=== PATIENT | male | born 1975 | race Two or more races ===

== ENCOUNTER 2021-10-23 00:50 | Emergency (ER) | payer OTHER ==
[2021-10-23 01:48] VITALS: TEMP 97.8; BMI 35.8
[2021-10-23] MEDS ORDERED: MAG HYDROX/AL HYDROX/SIMETH 30 ML UNIT-DOSE CUP PO ONE (02:34)
[2021-10-23] MEDS ORDERED: FAMOTIDINE 20 MG/50 ML IVPB 20 MG/50 ML MG IVPB ONE ×2 (02:34→03:03)
[2021-10-23] MEDS ORDERED: SODIUM CHLORIDE 0.9% 500 ML INFUS.BAG IV ONE (02:34)
[2021-10-23] MEDS ORDERED: SUCRALFATE 1 GM/10 ML UNIT DOSE CUPS PO ONE (02:35)
[2021-10-23] MEDS ORDERED: SUCRALFATE 1 GM TABLET (FP) PO ONE (03:02)
[2021-10-23] MEDS ORDERED: SUCRALFATE 1 GM TABLET (FP) ONE (03:03)
[2021-10-23] MEDS ORDERED: MAG HYDROX/AL HYDROX/SIMETH 30 ML UNIT-DOSE CUP ONE (03:03)
[2021-10-23 03:27] LABS: BASO % 0.2 % (0-2.0); EOS % 0.3 % (0-4.5); HEMATOCRIT 44.8 % (35.4-49); HEMOGLOBIN 15.4 GM/dL (11.7-16.9); LYMPH % 7.6 % (8-40); MCH 28.1 pg (25.7-33.7); MCHC 34.3 g/dl (32.0-35.9); MEAN CELL VOLUME 81.9 fl (80-96); MEAN PLT VOLUME 7.5 fl (7.5-11.1); NEUT % 88.9 % (42.8-82.8); PLATELET COUNT 191 10^3/uL (134-434); RBC 5.47 M/mm3 (4.00-5.60); RDW 13.8 % (11.9-15.9); WHITE BLOOD COUNT 9.2 K/mm3 (4.0-10.0)
[2021-10-23 03:46] LABS: CHLORIDE 102 mmol/L (98-107); SODIUM 138 mmol/L (136-145)
[2021-10-23 03:48] LABS: CALCIUM 9.1 mg/dL (8.5-10.1); LIPASE 150 U/L (73-393)
[2021-10-23 03:49] LABS: ALBUMIN 4.2 g/dl (3.4-5.0); ANION GAP 7 MMOL/L (8-16); BLOOD UREA NITROGEN 19.3 mg/dL (7-18); CO2 29 mmol/L (21-32); GLUCOSE,RANDOM 211 mg/dL (74-106)
[2021-10-23 03:51] LABS: CREATININE 1.2 mg/dL (0.55-1.3)
[2021-10-23 03:52] LABS: SGOT/AST 25 U/L (15-37); SGPT/ALT 50 U/L (13-61)
[2021-10-23 03:53] LABS: BILIRUBIN,TOTAL 0.4 mg/dL (0.2-1); TOT PROT 8.1 g/dl (6.4-8.2)
[2021-10-23 03:54] LABS: ALK PHOS 66 U/L (45-117)
[2021-10-23 08:30] VITALS: BP 146/91; PULSE 90
== END 2021-10-23 08:34 | disposition home or self-care (01) ==
LOC: JER 00:50
PROC: 3E033NZ Introduction of Analgesics, Hypnotics, Sedatives into Peripheral Vein, Percutaneous Approach (ICD-10-PCS; principal; 2021-10-23)
DX: N28.1 Cyst of kidney, acquired (principal); R10.9 Unspecified abdominal pain
CPT/HCPCS: 36415; 74177-TC; 80053; 82550; 83605; 83690; 84484; 85025; 93005; 93010; 99285-25

== ENCOUNTER 2023-01-02 02:59 | Inpatient (IN) | payer OTHER ==
[2023-01-02] MEDS ORDERED: ACETAMINOPHEN 1000 MG/100 ML BAG IVPB ONE (03:59)
[2023-01-02] MEDS ORDERED: MAG HYDROX/AL HYDROX/SIMETH 30 ML UNIT-DOSE CUP PO ONE (03:59)
[2023-01-02] MEDS ORDERED: FAMOTIDINE 20 MG/50 ML IVPB 20 MG/50 ML MG IVPB ONE ×2 (03:59→04:05)
[2023-01-02] MEDS ORDERED: SODIUM CHLORIDE 0.9% 500 ML INFUS.BAG IV ONE (03:59)
[2023-01-02] MEDS ORDERED: MAG HYDROX/AL HYDROX/SIMETH 30 ML UNIT-DOSE CUP ONE (04:05)
[2023-01-02 04:50] LABS: BASO % 0.5 % (0-2.0); EOS % 4.3 % (0-4.5); HEMATOCRIT 39.3 % (35.4-49); HEMOGLOBIN 13.9 GM/dL (11.7-16.9); LYMPH % 9.4 % (8-40); MCH 28.6 pg (25.7-33.7); MCHC 35.4 g/dl (32.0-35.9); MEAN CELL VOLUME 80.9 fl (80-96); MEAN PLT VOLUME 8.2 fl (7.5-11.1); MONO % 8.9 % (3.8-10.2); NEUT % 76.9 % (42.8-82.8); PLATELET COUNT 196 10^3/uL (134-434); RBC 4.85 M/mm3 (4.00-5.60); RDW 13.6 % (11.9-15.9); WHITE BLOOD COUNT 10.2 K/mm3 (4.0-10.0)
[2023-01-02 05:18] LABS: ALBUMIN 3.4 g/dl (3.4-5.0); BLOOD UREA NITROGEN 12.7 mg/dL (7-18)
[2023-01-02 05:22] LABS: BILIRUBIN,TOTAL 0.6 mg/dL (0.2-1); TOT PROT 7.4 g/dl (6.4-8.2)
[2023-01-02] MEDS ORDERED: LACTATED RINGERS SOLUTION 1,000 ML/1,000 ML INFUS.BAG IV SCH (09:00)
[2023-01-02] MEDS: LACTATED RINGERS SOLUTION 1,000 ML/1,000 ML INFUS.BAG IV SCH ×3 (10:01→22:09)
[2023-01-02] MEDS: INSULIN SLIDING SCALE (NOVOLOG) 1 VIAL SQ SCH ×3 (10:41→22:00)
[2023-01-02] MEDS ORDERED: ACETAMINOPHEN 1000 MG/100 ML BAG IVPB PRN (15:43)
[2023-01-03 03:22] VITALS: BMI 34.0
[2023-01-03] MEDS: INSULIN SLIDING SCALE (NOVOLOG) 1 VIAL SQ SCH ×4 (06:37→21:38)
[2023-01-03] MEDS: LACTATED RINGERS SOLUTION 1,000 ML/1,000 ML INFUS.BAG IV SCH ×3 (09:16→23:58)
[2023-01-03 09:49] LABS: MCHC 35.9 g/dl (32.0-35.9); MEAN CELL VOLUME 80.8 fl (80-96); MEAN PLT VOLUME 7.6 fl (7.5-11.1); PLATELET COUNT 187 10^3/uL (134-434); RBC 4.83 M/mm3 (4.00-5.60); RDW 13.6 % (11.9-15.9); WHITE BLOOD COUNT 7.8 K/mm3 (4.0-10.0)
[2023-01-03 09:57] LABS: BLOOD UREA NITROGEN 12.1 mg/dL (7-18)
[2023-01-03 09:58] LABS: ALBUMIN 3.1 g/dl (3.4-5.0)
[2023-01-03 10:01] LABS: CREATININE 0.8 mg/dL (0.55-1.3); PHOSPHOROUS 2.1 mg/dL (2.5-4.9)
[2023-01-03 10:02] LABS: TOT PROT 6.9 g/dl (6.4-8.2)
[2023-01-03] MEDS: ENOXAPARIN NA (PORCINE) 40 MG/0.4 ML DISP.SYRIN SQ SCH (10:15)
[2023-01-03] MEDS: LISINOPRIL 5 MG TABLET PO SCH (10:16)
[2023-01-03] MEDS ORDERED: INSULIN (NOVOLOG) ASPART 100 UNITS/ML 10ML VIAL ONE (12:02)
[2023-01-03] MEDS: NAPH,MB-DB/K PH,MBDB POWDER PACKET PO SCH ×3 (12:04→21:44)
[2023-01-03 18:36] VITALS: RESP 20
[2023-01-04] MEDS: INSULIN SLIDING SCALE (NOVOLOG) 1 VIAL SQ SCH ×4 (08:22→22:20)
[2023-01-04 08:48] LABS: BASO % 0.2 % (0-2.0); EOS % 2.2 % (0-4.5); HEMATOCRIT 39.2 % (35.4-49); LYMPH % 8.3 % (8-40); MCH 28.4 pg (25.7-33.7); MCHC 35.7 g/dl (32.0-35.9); MEAN CELL VOLUME 79.4 fl (80-96); MEAN PLT VOLUME 7.8 fl (7.5-11.1); MONO % 7.7 % (3.8-10.2); NEUT % 81.6 % (42.8-82.8); PLATELET COUNT 238 10^3/uL (134-434); RBC 4.93 M/mm3 (4.00-5.60); RDW 13.5 % (11.9-15.9); WHITE BLOOD COUNT 9.8 K/mm3 (4.0-10.0)
[2023-01-04 09:50] LABS: ALBUMIN 3.1 g/dl (3.4-5.0); BLOOD UREA NITROGEN 12.8 mg/dL (7-18)
[2023-01-04 09:51] LABS: CALCIUM 8.6 mg/dL (8.5-10.1)
[2023-01-04 09:53] LABS: MAGNESIUM 1.6 mg/dL (1.8-2.4)
[2023-01-04 09:56] LABS: CREATININE 0.8 mg/dL (0.55-1.3)
[2023-01-04 09:57] LABS: BILIRUBIN,TOTAL 0.8 mg/dL (0.2-1)
[2023-01-04] MEDS: NAPH,MB-DB/K PH,MBDB POWDER PACKET PO SCH ×2 (10:03→22:21)
[2023-01-04] MEDS: ENOXAPARIN NA (PORCINE) 40 MG/0.4 ML DISP.SYRIN SQ SCH (10:03)
[2023-01-04] MEDS: LISINOPRIL 5 MG TABLET PO SCH (10:03)
[2023-01-04] MEDS ORDERED: MAGNESIUM OXIDE 400 MG TABLET (FP) PO ONE (10:36)
[2023-01-04] MEDS ORDERED: INSULIN (NOVOLOG) ASPART 100 UNITS/ML 10ML VIAL ONE (12:03)
[2023-01-04 15:52] VITALS: BP 146/88; PULSE 101; TEMP 99
[2023-01-05] MEDS: LACTATED RINGERS SOLUTION 1,000 ML/1,000 ML INFUS.BAG IV SCH (03:11)
[2023-01-05] MEDS: INSULIN SLIDING SCALE (NOVOLOG) 1 VIAL SQ SCH (06:45)
[2023-01-05 08:10] LABS: ALBUMIN 2.7 g/dl (3.4-5.0); CALCIUM 8.6 mg/dL (8.5-10.1)
[2023-01-05 08:11] LABS: BLOOD UREA NITROGEN 12.5 mg/dL (7-18); MAGNESIUM 1.7 mg/dL (1.8-2.4)
[2023-01-05 08:12] LABS: BASO % 0.2 % (0-2.0); EOS % 2.4 % (0-4.5); HEMATOCRIT 37.3 % (35.4-49); HEMOGLOBIN 13.3 GM/dL (11.7-16.9); LYMPH % 8.7 % (8-40); MCH 28.5 pg (25.7-33.7); MCHC 35.6 g/dl (32.0-35.9); MEAN PLT VOLUME 7.5 fl (7.5-11.1); MONO % 8.7 % (3.8-10.2); PLATELET COUNT 220 10^3/uL (134-434); RBC 4.66 M/mm3 (4.00-5.60); RDW 13.5 % (11.9-15.9); WHITE BLOOD COUNT 9.1 K/mm3 (4.0-10.0)
[2023-01-05 08:13] LABS: CREATININE 0.8 mg/dL (0.55-1.3)
[2023-01-05 08:15] LABS: BILIRUBIN,TOTAL 0.7 mg/dL (0.2-1); TOT PROT 6.3 g/dl (6.4-8.2)
[2023-01-05] MEDS ORDERED: MAGNESIUM OXIDE 400 MG TABLET (FP) PO ONE (09:05)
[2023-01-05] MEDS ORDERED: POTASSIUM CHLORIDE TABS 20 MEQ TABLET.ER (FP) PO ONE (09:05)
== END 2023-01-05 09:50 | disposition left against medical advice (07) | DRG 282 ==
LOC: JER 02:59 → JERBED 07:07 → UNDOADMOB 07:07 → INTOOBSV 07:07 → JERBED 19:31 → J8W 19:43 → OBSVTOIN 01-03 12:39
PROVIDERS: ADMIT Internal Medicine; ATTEND Nurse Practitioner Acute Care
DX: K85.90 Acute pancreatitis without necrosis or infection, unspecified (principal); I10 Essential (primary) hypertension; D72.829 Elevated white blood cell count, unspecified; E11.9 Type 2 diabetes mellitus without complications
CPT/HCPCS: 0241U-QW; 36415; 74177-TC; 76705-TC; 80053; 80061; 82962; 83690; 83735; 84100; 84484; 85025; 85027; 86140; 93005; 93010; 99285-25; G0378; Q9967